=== PATIENT | female | born 2000 | race Two or more races ===

== ENCOUNTER 2024-09-13 10:17 | Outpatient (REF) | payer MEDICAID, SELFPAY ==
[2024-09-13 11:10] LABS: Basophils Percent Auto 0.4 % (0-2); Eosinophils Percent Auto 0.8 % (0-4); Hematocrit 45.4 % (37.0-47.0); Hemoglobin 15.7 g/dl (12.0-16.0); Imm Gran Abs Auto 0.02 X10*3/uL (0.00-0.03); Imm Gran Pct Auto 0.4 % (0.0-0.4); Lymphocytes Absolute Auto 1.8 X10*3/uL (1.2-4.9); Lymphocytes Percent Auto 34.5 % (20-40); MANUAL DIFF FLAG SCAN; Mean Corpuscular HGB Conc 34.6 g/dl (31.0-35.0); Mean Corpuscular Hemoglobin 29.3 pg (27.0-33.0); Mean Corpuscular Volume 84.7 fL (80.0-98.0); Monocytes Percent Auto 4.7 % (2-11); Neutrophils Absolute Auto 3.1 x10*3/uL (2.0-8.3); Neutrophils Percent Auto 59.2 % (45-73); Red Cell Distribution Width 12.5 % (11.0-16.0)
--- OUTSIDE RECORDS SUMMARY | 2024-09-13 11:20 | XMS_ITS | Encounter Summary ---
Author Organization [employer] Address [address] [place] [address] Care Team Providers Care Pipe Tester Name Role Phone Unavailable Primary Care Provider Unavailabl e Reason for Visit * Reason Onset Date Comments Chart Prep 09/12/2024 Encounter Details Date Type Department Care Team ([facility] st Contact Info) Description 09/12/2024 Telephone [facility] MEDICINE [address] [place] [address] Enid Calvert NP [address] [place] [address] Chart Prep Social History Tobacco Use Types Packs/Day Years Used Date Smoking Tobacco: Never Assessed Depression Answer Date Recorded Patient Health Questionnaire-9 Score 2 09/13/2024 Patient Health Questionnaire-9 Score 2 09/13/2024 Last PHQ-9: Questionnaire Data Not on file 0 09/13/2024 Housing Stability Answer Date Recorded What is your housing situation today? I have gokul yu 09/13/[address] you li ve. Do you have problems with any of the following? None of the above 09/13/2024 Food Insecurity Answer Date Recorded Within the past 12 months, y ou worried that your food would run out before you got money to buy more: Never True 09/13/2024 Within the past 12 months,th e food you bought just didn't last and you didn't have enough money to get more: Never True Transportation Answer Date Recorded In the past 12 months, has l ack of transportation kept you from medical appts, meetings, work or from getting things needed for daily living? Yes, it has kept me from medical appointments or getting medications. 09/13/2024 Utilities Answer Date Recorded In the past 12 months, has t he electric, gas, oil or water company threatened to shut off services in your home? No 09/13/2024 Depression Answer Date Recorded Patient Health Questionnaire-2 Score 1 09/13/2024 Internet Access Answer Date Recorded Internet Access Q1 Yes 09/13/2024 Internet Access Q2 Not on file 09/13/2024 Comments Unknown Sex and Gender Information Value Date Recorded Sex Assigned at Female 10/29/2023 8:55 AM EDT Legal Sex Female 8:55 AM EDT Gender Identity Female 10/29/2023 8:55 AM EDT Sexual Orientation Straight 10/29/2023 8: 55 AM EDT documented as of this encounter Miscellaneous Notes * Telephone Encounter - Litzy Leyva MA - 09/12/2024 9:03 AM EDT Chart Prep Labs: not applicable Images: not applicable Referrals: not applicable Vaccines due: Covid, Flu, Tdap, Hep B, and HPV Screenings: pap smear and HIV, Hep C screenings. Overdue care gaps: SBIRT, SDOH, PHQ-9, HUNG-7, Oral health screening, Disability screen, and Tobacco documented in this encounter Plan of Treatment Upcoming Encounters Date Type Department Care Team (Late st Contact Info) Description 11/28/2024 1:00 PM EDT Procedure Visit [facility] MEDICINE [address] [place] [address] Enid Calvert NP [address] [place] [address] documented as of this encounter Visit Diagnoses Not on filedocumented in this encounter
--- OUTSIDE RECORDS SUMMARY | 2024-09-13 11:20 | XMS_ITS | Encounter Summary ---
Author Organization [employer] Address [address] [place] [address] Care Team Providers Care Sales And Management Trainee Name Role Phone Enid Calvert NP Primary Care Provider [phone] Encounter Details Date Type Department Care Team (Latest Contact Info) Description 09/13/2024 Travel Social History Tobacco Use Types Packs/Day Years Used Date Smoking Tobacco: Never Smokeless Tobacco: Never Depression Answer Date Recorded Patient Health Questionnaire-9 Score 2 09/13/2024 Patient Health Questionnaire-9 Score 2 09/13/2024 Last PHQ-9: Questionnaire Data Not on file 0 09/13/2024 Housing Stability Answer Date Recorded What is your housing situation today? I have gokul aimee 09/13/[address] you li [...] AM EDT documented as of this encounter Functional Status * Over the past 2 weeks, how often have you been bothered by any of the following problems? Question Answer Date of Assessment Author Patient Health Questionnaire-2 Score 1 08/31 10:13 AM EDT Radha Ying MA * Little interest or pleasure in doing things Answer Date of Assessment Author Several days 09/13/2024 10:13 AM PRASHANTT Radames Ying MA * Feeling down, depressed, or hopeless Answer Date of Assessment Author Not at all 09/13/2024 10:13 AM Radames Faye MA * Trouble falling or staying asleep, or sleeping too much Answer Date of Assessment Author Not at all 09/13/2024 10:13 AM Radames Faye MA * Feeling tired or having little energy Answer Date of Assessment Author Several days 09/13/2024 10:13 AM Radames Faye MA * Poor appetite or overeating Answer Date of Assessment Author Not at all 09/13/2024 10:13 AM Radames Faye MA * Feeling bad about yourself - or that you are a failure or have let yourself or your family down Answer Date of Assessment Author Not at all 09/13/2024 10:13 AM Radames Faye MA * Trouble concentrating on things, such as reading the newspaper or watching television Answer Date of Assessment Author Not at all 09/13/2024 10:13 AM Radames Faye MA * Moving or speaking so slowly that other people could have noticed? Or the opposite - being so fidgety or restless that you have been moving around a lot more than usual. Answer Date of Assessment Author Not at all 09/13/2024 10:13 AM Radames Faye MA * Thoughts that you would be better off or hurting yourself in some way Answer Date of Assessment Author Not at all 09/13/2024 10:13 AM Radames Faye MA * Patient Health Questionnaire-9 Score Answer Date of Assessment Author 2 09/13/2024 10:13 AM PRASHANTT Radames Ying MA * How difficult have these problems made it for you to do your work, take care of things at home, or get along with other people? Answer Date of Assessment Author Not difficult at all 09/13/2024 10:13 AM EDT Radha Rudolph MA * Over the last 2 weeks, how often have you been bothered by any of the following problems? Question Answer Date of Assessment Author Feeling nervous, anxious, or on edge 1 08/31 10:13 AM PRASHANTT Radha Ying MA Not being able to stop or co ntrol worrying 0 09/13/2024 10:13 AM PRASHANTT Radha Ying MA Worrying too much about diff erent things 0 09/13/2024 10:13 AM PRASHANTT Radha Ying MA Trouble relaxing 0 09/13/2024 10:13 AM Radha Faye MA Being so restless that it is hard to sit still 0 09/13/2024 10:13 AM Radha Faye MA Becoming easily annoyed or irritable 0 08/31 10:13 AM PRASHANTT Radha Ying MA Feeling afraid as if somethi ng awful might happen 1 09/13/2024 10:13 AM PRASHANTT Radha Ying MA HUNG-7 Total Score 2 09/13/2024 10:13 AM Radha Faye MA documented as of this encounter Plan of Treatment Upcoming Encounters Date Type Department Care Team (Late st Contact Info) Description 11/28/2024 1:00 PM EDT Procedure Visit [facility] MEDICINE [address] [place] [address] Enid Calvert NP [address] [place] [address] documented as of this encounter Visit Diagnoses Not on filedocumented in this encounter Additional Health Concerns Assessment Noted Time PHQ-9 Depression Total Score: 2 09/14/19 25 10:13 AM EDT documented as of this encounter Care Teams Sales And Management Trainee Relationship Specialty Start Date End Date Enid Calvert NP [address] [place] [address] PCP - General Family Medicine 09/13/24 documented as of this encounter
--- OUTSIDE RECORDS SUMMARY | 2024-09-13 11:20 | XMS_ITS | Clinical Summary ---
Author Organization [employer] Address [address] [facility] 7t [place] [address] Care Team Providers Care Video Tape Transferrer Name Role Phone Enid Calvert NP Primary Care Provider [phone] Allergies No known active allergies Medications ibuprofen 200 MG tablet Take 2 tablets (400 mg) by mouth every 8 (eight) hours if needed for mild pain. 100 tablet 2 09/13/2024 Active Active Problems Problem Noted Date Diagnosed Date Healthcare maintenance 09/13/2024 Sexually transmitted disease exposure 09/13/2024 Dysmenorrhea 09/13/2024 Encounters Date Type Department Care Team Description 09/13/2024 9:00 AM EDT Office Visit [facility] MEDICINE [address] [place] [address] Enid Calvert NP Healthcare maintenance (Primary Dx); Sexually transmitted disease exposure; Dysmenorrhea 09/13/2024 Travel 09/12/2024 Telephone [facility] MEDICINE [address] [place] [address] Enid Calvert NP Chart Prep 09/06/2024 Patient Outreach [facility] [address] [place], [place] [phone] Enid Calvert NP Pre-visit Planning ([facility] unable to reach, number disconnected) 06/21/2024 Telephone [facility] MEDICINE [address] [place] [phone] Forest Heard MD from Last 3 Months Social History Tobacco Use Types Packs/Day Years Used Date Smoking Tobacco: Never Smokeless Tobacco: Never Tobacco Cessation:Counseling Given: Not Answered Depression Answer Date Recorded Patient Health Questionnaire-9 [...] t he electric, gas, oil or water [employer] threatened to shut off services in your [...] Orientation Straight 10/29/2023 8: 55 AM EDT Last Filed Vital Signs Vital Sign Reading Time Taken Comments Blood Pressure 123/84 09/13/2024 9:18 AM EDT Pulse 94 09/13/2024 9:18 AM EDT Temperature 35.6 ??C (96.1 ??F) 09/13/2024 9:18 AM ED T Respiratory Rate 18 09/13/2024 9:18 AM EDT Oxygen Saturation 99% 09/13/2024 9:18 AM EDT Inhaled Oxygen Concentration - - Weight 42.8 kg (94 lb 6.4 oz) 09/13/2024 9:18 AM EDT Height 144.5 cm (4' 8.89 ) 09/13/2024 9:18 AM ED T Body Mass Index 20.51 09/13/2024 9:18 AM EDT Plan of Treatment Upcoming Encounters Date Type Department Care Team ([facility] st Contact Info) Description 11/28/2024 1:00 PM EDT Procedure Visit [facility] MEDICINE [address] [place], [place] [phone] Enid Calvert NP [address] [place] [address] Health Maintenance Due Date Last Done Comments HIV Screening 2000 Family Planning (PISQ) 01/01/2015 HPV Vaccines (1 - 3-dose series) 01/01/2015 Hepatitis C Screening 01/01/2018 DTaP/Tdap/Td Vaccines (1 - Tdap) 01/01/2019 Hepatitis B Vaccines (1 of 3 - 19+ 3-dose series) 01/01/2019 Pap Smear 01/01/2021 COVID-19 Vaccine (1 - 2023-2 5 season) 2024 Influenza Vaccine (#1) 2024 Alcohol/Substance Use Screening 09/13/2025 09/13/2024 Depression Screening 09/13/2025 09/13/2024, 09/13/2024 SDOH Screening 09/13/2025 09/13/2024 Tobacco Screening 09/13/2025 09/13/2024 Zoster Vaccines (1 of 2) 01/01/2050 RSV Patients and Patients Aged 60 years or older (1 - 1-dose 75+ series) 01/01/2075 HIB Vaccines Aged Out No longer eligi ble based on patient's age to complete this topic Hepatitis A Vaccines Aged Out No long er eligible based on patient's age to complete this topic IPV Vaccines Aged Out No longer eligi ble based on patient's age to complete this topic Meningococcal B Vaccine Aged Out No l onger eligible based on patient's age to complete this topic Meningococcal Vaccine Aged Out No meghann jodie eligible based on patient's age to complete this topic Pneumococcal Vaccine: Pediatrics (0 to 5 Years) and At-Risk Patients (6 to 49) Years) Aged Out No longer eligible b ased on patient's age to complete this topic RSV under 20 months Aged Out No longe r eligible based on patient's age to complete this topic Rotavirus Vaccines Aged Out No longer eligible based on patient's age to complete this topic Insurance [facility] HSN FULL Care Teams Video Tape Transferrer Relationship Specialty Start Date End Date Enid Calvert NP [address] [place] [phone] PCP - General Family Medicine 09/13/24
--- OUTSIDE RECORDS SUMMARY | 2024-09-13 11:20 | XMS_ITS | Encounter Summary ---
Author Organization [employer] Address [address] [place] [address] Care Team Providers Care Promotions Specialist Name Role Phone Enid Calvert NP Primary Care Provider [phone] Encounter Details Date Type Department Care Team ([facility] st Contact Info) Description 09/13/2024 9:00 AM EDT Office Visit [facility] MEDICINE [address] [place], [place] [phone] Enid Calvert NP [address] [place] [address] Healthcare maintenance (Primary Dx); Sexually transmitted disease exposure; Dysmenorrhea Social History Tobacco Use Types Packs/Day Years [...] the past 12 months, has t he [employer], gas, oil or water company threatened to [...] AM EDT documented as of this encounter Last Filed Vital Signs Vital Sign Reading [...] Mass Index 20.51 09/13/2024 9:18 AM EDT documented in this encounter Functional Status * Over the past 2 weeks, how often have you been bothered by any of the following problems? Question Answer Date of Assessment Author Patient Health Questionnaire-2 Score 1 08/31 10:13 AM EDT Radha Ying MA * Little interest or pleasure in doing things Answer Date of Assessment Author Several days 09/13/2024 10:13 AM EDT Radames Ying MA * Feeling down, depressed, or hopeless Answer Date of Assessment Author Not at all 09/13/2024 10:13 AM EDT Radames Ying MA * Trouble falling or staying asleep, [...] of Assessment Author 2 09/13/2024 10:13 AM Radames Faye MA * How difficult have these problems made it for you to do your work, take care of things at home, or get along with other people? Answer Date of Assessment Author Not difficult at all 09/13/2024 10:13 AM Radha Hanson MA * Over the last 2 weeks, how often have you been bothered by any of the following problems? Question Answer Date of Assessment Author Feeling nervous, anxious, or on edge 1 08/31 10:13 AM Radha Faye MA Not being able to stop or co ntrol worrying 0 09/13/2024 10:13 AM Radha Faye MA Worrying too much about diff erent things 0 09/13/2024 10:13 AM EDT Radha Ying MA Trouble relaxing 0 09/13/2024 10:13 AM EDT Radha Ying MA Being so restless that it is hard to sit still 0 09/13/2024 10:13 AM EDT Radha Ying MA Becoming easily annoyed or irritable 0 08/31 10:13 AM EDT Radha Ying MA Feeling afraid as if somethi ng awful might happen 1 09/13/2024 10:13 AM EDT Radha Ying MA HUNG-7 Total Score 2 09/13/2024 10:13 AM EDT Radha Ying MA documented as of this encounter Plan of Treatment Upcoming Encounters Date Type Department Care Team (Late st Contact Info) Description 11/28/2024 1:00 PM EDT Procedure Visit [facility] MEDICINE [address] [place] [address] Enid Calvert NP [address] [place] [address] Scheduled Orders Name Type Priority Associated Diagnoses Orde r Schedule Chlamydia/N. Gonorrhoeae RNA, TMA, Urogenitial Microbiology Routine Sexually transmitted disease exposure Dysmenorrhea Ordered: 09/13/2024 Comprehensive Metabolic Panel Lab Routine Healthcare maintenance Expected: 09/13/2024 (Approximate), Expires: 09/13/2025 Lipid Panel, Standard Lab Routine Healthcare maintenance Expected: 09/13/2024 (Approximate), Expires: 09/13/2025 CBC auto differential Lab Routine Healthcare maintenance Expected: 09/13/2024 (Approximate), Expires: 09/13/2025 HIV-1/2 Antigen and Antibodies, Fourth Generation, with Reflexes Lab Routine Healthcare maintenance Expected: 09/13/2024 (Approximate), Expires: 09/13/2025 Hepatitis C Antibody with Reflex to HCV, RNA, Quantitative, Real-Time PCR Lab Routine Healthcare maintenance Expected: 09/13/2024, Expires: 09/13/2025 documented as of this encounter Visit Diagnoses Diagnosis Healthcare maintenance- Primary Sexually transmitted disease exposure Contact with or exposure to venereal diseases Dysmenorrhea documented in this encounter Additional Health Concerns Assessment Noted Time PHQ-9 Depression Total Score: 2 09/14/19 25 10:13 AM EDT documented as of this encounter Care Teams Promotions Specialist Relationship Specialty Start Date End Date Enid Calvert NP [address] [place] [address] PCP - General Family Medicine 09/13/24 documented as of this encounter
[2024-09-13 11:24] LABS: Monocytes Absolute Auto 0.3 X10*3/uL (0.1-1.2); PLT CLUMP 1; Red Blood Count 5.36 X10*6/uL (4.20-5.50); SCAN SMEAR FLAG 1
[2024-09-13 11:43] LABS: Alanine Aminotransferase 17 U/L (0-31); Alkaline Phosphatase 76 U/L (39-117); Anion Gap 15 (12-20); Aspartate Amino Transferase 26 U/L (5-31); Bilirubin Total 0.4 mg/dL (0.0-1.0); Blood Urea Nitrogen 12 mg/dL (9-16); Calcium 9.8 mg/dL (8.4-10.2); Carbon Dioxide 22 mmol/L (22-29); Chloride 108 mmol/L (96-108); Cholesterol 215 mg/dL (<200); Estimated Glomerular Filt Rate > 60; Glucose Random 84 mg/dL (60-115); HDL Cholesterol 51 mg/dL (>40); LDL Cholesterol Calculated 138 mg/dL (<100); Mean Platelet Volume 9.8 fL (9.4-12.3); Platelet Count 172 X10*3/uL (160-400); Potassium 3.7 mmol/L (3.3-5.1); SLIDE REVIEW VERIFIED; Sodium 141 mmol/L (135-145); Total Protein 8.1 g/dL (6.5-8.0); Triglycerides 132 mg/dL (<150); White Blood Count 5.5 X10*3/uL (4.8-10.8)
[2024-09-13 11:48] LABS: HIV AB/AG Nonreactive (Nonreactive); HIV Num 1 0.06 S/CO (0.00-0.99); ~HepC Num1 0.09 S/CO (0.00-0.79); ~Hepatitis C Antibody Nonreactive (Nonreactive)
[2024-09-13 22:07] LABS: CT PCR NOT DETECTED (Not Detect.); NG PCR NOT DETECTED (Not Detect.)
== END 2024-09-13 10:18 | disposition home or self-care (01) ==
LOC: HO.HHCL 10:17
PROVIDERS: Visit Provider Nurse Practitioner Family
DX: Z00.00 Encounter for general adult medical examination without abnormal findings (principal); Z11.4 Encounter for screening for human immunodeficiency virus [HIV]; Z11.3 Encounter for screening for infections with a predominantly sexual mode of transmission; Z20.2 Contact with and (suspected) exposure to infections with a predominantly sexual mode of transmission; N94.6 Dysmenorrhea, unspecified
CPT/HCPCS: 36415; 80053; 80061; 85025; 86803; 87389; 87491; 87591

== ENCOUNTER 2024-12-25 09:06 | Outpatient (REF) | payer MEDICAID, SELFPAY ==
--- OUTSIDE RECORDS SUMMARY | 2024-12-25 14:45 | XMS_ITS | Encounter Summary ---
Author Organization [employer] Address [address] [facility] 7t [place] [address] Care Team Providers Care Biodiesel Plant Operations Engineer Name Role Phone Enid Calvert NP Primary Care Provider [phone] Encounter Details Date Type Department Care Team (Latest Contact Info) Description 12/25/2024 2:45 PM EDT Procedure Visit [facility] MEDICINE [address] [place] [address] Enid Calvert NP [address] [place] [address] Cervical cancer screening (Primary Dx) Social History Tobacco Use Types Packs/Day Years Used Date Smoking Tobacco: Never Passive Smoke Exposure: Never Smokeless Tobacco: Never Tobacco Cessation:Counseling Given: Not Answered Alcohol Use Standard Drinks/Week Comments Never 0 (1 standard drink = 0.6 oz pur e alcohol) Depression Answer Date Recorded Patient Health Questionnaire-9 [...] Sign Reading Time Taken Comments Blood Pressure 100/66 12/25/2024 2:39 PM EDT Pulse 76 12/25/2024 2:39 PM EDT Temperature 37.1 C (98.8 F) 12/25/2024 2:39 PM EDT Respiratory Rate 16 12/25/2024 2:39 PM EDT Oxygen Saturation - - Inhaled Oxygen Concentration - - Weight 43.8 kg (96 lb 8 oz) 12/25/2024 2:39 PM E DT Height 144 cm (4' 8.69 ) 12/25/2024 2:39 PM EDT Body Mass Index 21.11 12/25/2024 2:39 PM EDT documented in this encounter Plan of Treatment Scheduled Orders Name Type Priority Associated Diagnoses Orde r Schedule Pap Smear Pathology and Cytology Routine Cervical cancer screening Ordered: 12/25/2024 documented as of this encounter Visit Diagnoses Diagnosis Cervical cancer screening- Primary Screening for malignant neoplasm of the cervix documented in this encounter Additional Health Concerns Assessment Noted Time PHQ-9 Depression Total Score: 2 09/14/19 10:13 AM EDT documented as of this encounter Care Teams Biodiesel Plant Operations Engineer Relationship Specialty Start Date End Date Enid Calvert NP [address] [place] [phone] PCP - General Family Medicine 09/13/24 documented as of this encounter
--- OUTSIDE RECORDS SUMMARY | 2024-12-27 09:34 | XMS_ITS | Encounter Summary ---
Author Organization [employer] Address [address] [facility] [address]t [place] [address] Care Team Providers Care Orbitread Operator Name Role Phone Enid Calvert NP Primary Care Provider [phone] Encounter Details Date Type Department Care Team (Latest Contact Info) Description 12/25/2024 Travel Social History Tobacco Use Types Packs/Day Years Used Date Smoking Tobacco: Never Passive Smoke Exposure: Never Smokeless Tobacco: Never Alcohol Use Standard Drinks/Week Comments Never 0 [...] AM EDT documented as of this encounter Plan of Treatment Not on file documented as of this encounter Visit Diagnoses Not on filedocumented in this encounter Additional Health Concerns Assessment Noted Time PHQ-9 Depression Total Score: 2 09/14/19 10:13 AM EDT documented as of this encounter Care Teams Orbitread Operator Relationship Specialty Start Date End Date Enid Calvert NP [address] [place] [address] PCP - General Family Medicine 09/13/24 documented as of this encounter
--- OUTSIDE RECORDS SUMMARY | 2024-12-27 09:34 | XMS_ITS | Clinical Summary ---
Author Organization [employer] Address [address] [facility] [address]t [place] [address] Care Team Providers Care Community Arts Worker Name Role Phone Enid Calvert NP Primary Care Provider [phone] Allergies No known active allergies Medications desogestrel-ethi nyl estradiol (Apri) 0.15-30 MG-MCG tablet Take 1 tablet by mouth Once per day. 28 tablet 2 12/25/2024 Active Active Problems Problem Noted Date Diagnosed Date Cervical cancer screening 12/25/2024 Healthcare maintenance 09/13/2024 Assessment & Plan (09/24/2024 4:04 PM EDT): Low cad risk, anticipatory guidance reviewed, Sexually transmitted disease exposure 09/13/2024 Assessment & Plan (09/24/2024 4:04 PM EDT): Sti screening completed. Dysmenorrhea 09/13/2024 Assessment & Plan (09/24/2024 4:05 PM EDT): Contraceptive counseling provided, pt contemplative at this time based on side effects Encounters Date Type Department Care Team Description 12/25/2024 2:45 PM EDT Procedure Visit [facility] MEDICINE [address] [place] [address] Enid Calvert NP Cervical cancer screening (Primary Dx) 12/25/2024 Travel 11/27/2024 Telephone [facility] MEDICINE [address] [place] [address] Elida Cortez MA chart prep from Last 3 Months Social History Tobacco [...] 16 12/25/2024 2:39 PM EDT Oxygen Saturation 99% 09/13/2024 9:18 AM EDT Inhaled Oxygen Concentration - - Weight 43.8 kg (96 lb 8 oz) 12/25/2024 2:39 PM E DT Height 144 cm (4' 8.69 ) 12/25/2024 2:39 PM EDT Body Mass Index 21.11 12/25/2024 2:39 PM EDT Plan of Treatment Health Maintenance Due Date Last Done Comments Family Planning (PISQ) 01/01/2015 HPV Vaccines (1 - 3-dose series) 01/01/2015 DTaP/Tdap/Td Vaccines (1 - Tdap) 01/01/2019 Hepatitis B Vaccines (1 of 3 - 19+ 3-dose series) 01/01/2019 Pap Smear 01/01/2021 COVID-19 Vaccine (1 - 2023-2 5 season) 2024 Influenza Vaccine (#1) 2025 Alcohol/Substance Use Screening 09/13/2025 09/13/2024 Depression Screening 09/13/2025 09/13/2024, 09/13/2024 Disability Screening 09/13/2025 09/13/2024 SDOH Screening 09/13/2025 09/13/2024 Tobacco Screening 12/25/2025 12/25/2024 Zoster Vaccines (1 of 2) 01/01/2050 RSV Patients and Patients Aged 60 years or older (1 - 1-dose 75+ series) 01/01/2075 HIV Screening Completed 09/13/2024 Hepatitis C Screening Completed 09/13/2024 HIB Vaccines Aged Out No longer eligi [...] Years) and At-Risk Patients (6 to 49) Years Aged Out No longer eligible b ased on patient's age to complete this topic RSV under 20 months Aged Out No longe r eligible based on patient's age to complete this topic Rotavirus Vaccines Aged Out No longer eligible based on patient's age to complete this topic Procedures Procedure Name Priority Date/Time Associated Diagnosis Comments HEPATITIS C AB W/REFL TO HCV RNA, QN, PCR Routine 09/13/2024 10:22 AM EDT Healthcare maintenance HIV 1/2 ANTIGEN/ANTIBODY, FOURTH GENERATION W/RFL Routine 09/13/2024 10:22 AM EDT Healthcare maintenance from Last 3 Months or Most Recently Relevant to Health Maintenance Results * Hepatitis C Antibody with Reflex to HCV, RNA, Quantitative, Real-Time PCR (09/13/2024 10:22 AM EDT) Pathologist [facility] Hepatitis C Antibody Nonreactive Nonreactive [facility] Comment:Antibodies to HCV no t detected; does not exclude early acuteHCV infection. Blood Venous blood specimen / Unknown 09/13/2024 10:22 AM EDT 09/13/2024 10:54 AM EDT Enid Calvert NP LAB BLOOD ORDERABLES Final Resul t [facility] [address] [place] [phone] * HIV-1/2 Antigen and Antibodies, Fourth Generation, with Reflexes (09/13/2024 10:22 AM EDT) Pathologist [facility] HIV AB/AG Nonreactive Nonreactive [facility] Comment:HIV-1 p24 Ag and/or HIV-1/HIV-2 Ab not detected.A test result that is nonreactive does not exclude thepossibility of exposure to or infection with HIV-1 and/orHIV-2. Nonreactive results in this assay for individualswith prior exposure to HIV-1 and/or HIV-2 may be due toantigen and antibody levels that are below the limit ofdetection of this assay.The [employer] HIV Ag/Ab Combo assay result andsupplemental assay results should be interpreted inconjunction with the patient's clinical presentation,history and other laboratory results. If the results areinconsistent with clinical evidence, additional testing issuggested to confirm the result. Blood Venous blood specimen / Unknown 09/13/2024 10:22 AM EDT 09/13/2024 10:54 AM EDT us Enid Calvert [facility] LAB BLOOD ORDERABLES Final Resul t [facility] [address] [place] [address] [phone] from Last 3 Months or Most Recently Relevant to Health Maintenance Insurance [facility] LIMITED HSN FULL Care Teams Community Arts Worker Relationship Specialty Start Date End Date Enid Calvert NP [address] [place] [address] PCP - General Family Medicine 09/13/24
== END 2024-12-25 09:07 | disposition home or self-care (01) ==
LOC: HO.LNP 09:06
PROVIDERS: Visit Provider Nurse Practitioner Family
DX: Z12.4 Encounter for screening for malignant neoplasm of cervix (principal)
CPT/HCPCS: 88175